=== PATIENT | male | born 1995 | race Caucasian/White ===

== ENCOUNTER 2024-02-06 17:08 | Emergency (ER) | payer SELFPAY ==
[2024-02-06 17:10] VITALS: BP 125/71; PULSE 69; RESP 18; TEMP 36.1; O2SAT 100; BMI 29.0
--- NOTE | 2024-02-06 17:22 | EKG12_ITS ---
Test Reason : CP Blood Pressure : / mmHG Vent. Rate : 074 BPM Atrial Rate : 074 BPM P-R Int : 192 ms QRS Dur : 094 ms QT Int : 396 ms P-R-T Axes : 054 063 043 degrees QTc Int : 439 ms Normal sinus rhythm Normal ECG Confirmed by CATRINA BARFIELD, KATHERYN ([id number]), video tape editor PHILLIP FRANKLIN ([id number]) on 02/08/2024 2:00:07 PM Referred By: ZUNILDA Confirmed By:KATHERYN FRITZ MD
--- NOTE | 2024-02-06 17:23 | EDS_ITS ---
HPI History of Present Illness Chief Complaint: Chest Pain Narrative Narrative: 28-year-old male who denies significant past medical history presents with intermittent chest pain that has had for the last 2 months. He states that sometimes it is dull then sharp, but very fleeting. It would sporadically, but has become more frequent. He denies any fevers or chills, no nausea or vomiting, no shortness of breath or diaphoresis associated with it. Usually comes on when he is walking. He denies any leg swelling, no DVT or PE risk factors. He is a smoker, and states that his mom had a heart attack at a young age. He presents because the intermittent chest pain has become more frequent. It is not constant, but the last time he had it he was walking through [place] 30 minutes ago. PFSH PFSH Allergy/AdvReac Type Severity Reaction Status Date / Time No Known Allergies Allergy Verified 02/06/24 17:09 Social History Smoking Status: Current every day smoker tobacco type: cigarettes ROS ROS ED ROS Narrative Constitutional: No fever, no chills. No diaphoresis. HEENT: No sore throat. No neck pain. No loss of vision. No rhinorrhea. Cardiovascular: Positive intermittent, fleeting chest pain. No palpitations. No pedal edema. Respiratory: No cough, no shortness of breath. Abdominal: No abdominal pain. No nausea. No vomiting. Genitourinary: No dysuria. No hematuria. Musculoskeletal: No myalgias. No arthralgias. Neurologic: No headaches. No dizziness. No lightheadedness. Skin: No rash. No change in color. Psychiatric: No depression. No anxiety. EXAM Physical Exam Narrative Exam Narrative: Afebrile. Vital signs noted. Nontoxic-appearing. Regular rate and rhythm. Lungs are clear to auscultation bilaterally. Abdomen soft nontender with normal active bowel sounds. Neurological examination nonfocal and nonlateralizing. No pedal edema. Const Vital Signs: 02/06/24 17:10 02/06/24 17:45 02/06/24 17:45 Temperature 97 F L Temperature Source Temporal Pulse Rate 69 Respiratory Rate 18 Respiratory Effort Normal Non-Labored Blood Pressure 125/71 H Blood Pressure Mean 89 Pulse Ox 100 Oxygen Delivery Method Room Air Room Air 02/06/24 18:12 10/06/24 19:00 02/06/24 20:00 Temperature Temperature Source Pulse Rate 69 61 60 Respiratory Rate 21 H 16 Respiratory Effort Blood Pressure 140/70 H 142/78 H 142/78 H Blood Pressure Mean 93 99 99 Pulse Ox 92 94 Oxygen Delivery Method Room Air Room Air Heart Score History: Slightly/Non-Suspicious ECG: Normal Age: </= 45 years Risk Factors: 1 or 2 Risk Factors Troponin: </= Normal Limit Score: 1 MDM MDM MDM Narrative Medical decision making narrative: Differential diagnosis includes but not limited to acute coronary syndrome versus pulmonary embolism versus pneumonia versus pneumothorax. History and phy sical does not support the latter 2 diagnoses. I have low suspicion for pulmonary embolism because he is PERC negative, not tachycardic, and has a pulse ox of 100% on room air without evidence of hypoxia. I will obtain a D-dimer though to help rule this out. Comprehensive workup was pursued. EKG was obtained and interpreted by myself independently. EKG demonstrates normal sinus rhythm at 74 bpm without ectopy or acute ST changes. No STEMI. I reviewed his laboratory work and he has normal white count of 10.9, hemoglobin normal at 16.4, hematocrit 48.4, platelet count normal at 250. D-dimer is negative at 0.41, sodium normal at 141, potassium normal at 3.8, anion gap low at 4. Initial high-sensitivity troponin is 4 with repeat at 2 hours also being 4 for a negative delta troponin. I feel he has been ruled out for ACS with biomarkers. Chest x-ray 1 view interpreted by myself independently shows no evidence of pneumonia or pneumothorax. I reviewed the radiology report which confirms my independent interpretation. At this point in time, I feel he can be discharged to follow-up with a primary care provider. Return instructions to the emergency department were reviewed. Disposition is discharged home in stable condition. History & Record Review Discussion w/independent historian: Patient and Family Lab Data Attestation: I reviewed the patient's lab results. Labs: Laboratory Results - last 24 hr 02/06/24 02/06/24 17:35 19:38 WBC 10.9 RBC 5.33 Hgb 16.4 Hct 48.4 MCV 90.8 MCH 30.8 MCHC 33.9 RDW Std Deviation 43.1 RDW Coeff of Jaya 13.1 Plt Count 250 MPV 9.8 Immature Gran % (Auto) 0.200 Neut % (Auto) 58.3 Lymph % (Auto) 33.1 [place] % (Auto) 5.8 Eos % (Auto) 2.0 Baso % (Auto) 0.6 Absolute Neuts (auto) 6.3 Absolute Lymphs (auto) 3.60 Nucleated RBC % 0 D-Dimer Quant (PE/DVT) 0.41 Sodium 141 Potassium 3.8 Chloride 106 Carbon Dioxide 31.0 Anion Gap 4 L BUN 17 Creatinine 0.92 Estim Creat Clear Calc 120.95 Est GFR (MDRD) Af Amer 127 Est GFR (MDRD) Non-Af 105 BUN/Creatinine Ratio 18.4 Glucose 98 Calcium 8.8 Troponin I High Sens 4 4 Radiography Diagnostic Testing: Clinical Impression(s) from Imaging Studies Chest X-Ray 02/06/24 17:38 IMPRESSION: Normal x-ray examination of the chest. Electronically Signed: Lyle Aguilar MD at 17:52 EDT Reading Location ID and State: [address] [address] , Service support , Discharge Plan Triage Chief Complaint: Chest Pain ED Provider: Carlos Middleton Dx/Rx/DC Orders Clinical Impression: Chest pain, Smoker Instructions: ED Chest Pain, Uncertain Cause Primary Care Provider: Care Physician,No Primary Referrals: Xavi Robison MD [Med Staff - Active Staff] - 1 Week if not improving Care Physician,No Primary [Primary Care Provider] - Activity Restrictions/Additional Instructions: Return with increased pain, new or worsening symptoms. Print Language: Urdu Disposition Disposition: Home, Self Care
--- NOTE | 2024-02-06 17:25 | NURSING ---
NO OLD EKGS
--- NOTE | 2024-02-06 17:38 | RAD_ITS ---
STUDY: X-RAY CHEST REASON FOR EXAM: Male, 28 years old. Atypical chest pain TECHNIQUE: Single AP portable view of the chest. COMPARISON: None. FINDINGS: EKG leads overlie the chest The lungs are clear and expanded. There is no demonstrated pleural abnormality. Normal size heart. Normal mediastinum and talat. Normal visualized pulmonary arteries. Normal visualized aortic arch and descending thoracic aorta. Normal visualized thoracic spine. Normal visualized ribs, clavicles, and shoulders. There is no demonstrated abnormality of the visualized soft tissue structures of the upper abdomen. RAD/Chest 1 View (Portable) IMPRESSION: Normal x-ray examination of the chest. Electronically Signed: Lyle Aguilar MD at 17:52 EDT ,
[2024-02-06 17:44] LABS: Absolute Neutrophil Count 6.3 X10^3/uL (2.0-7.7); Basophil# 0.06 X10^3/uL; Basophil% 0.6 % (0-1); Eosinophil# 0.22 X10^3/uL; Hematocrit 48.4 % (40-54); Hemoglobin 16.4 g/dL (13.0-16.5); Lymphocyte % 33.1 % (19-41); Mean Corp Hgb Conc 33.9 g/dL (32-36); Mean Corpuscular Hgb 30.8 pg (27.0-32.0); Mean Corpuscular Volume 90.8 fL (80-94); Mean Platelet Vol. 9.8 fl (6.2-12.0); Monocyte# 0.63 X10^3/uL; Monocyte% 5.8 % (0-10); NRBC Flagged by Analyzer 0 % (0-5); Neutrophil # 6.33 X10^3/uL (2.7-7.7); Neutrophil % 58.3 % (47-70); Platelet Count 250 K/mm3 (150-450); RBC Distribution Width CV 13.1 % (11.6-14.6); RBC Distribution Width SD 43.1 fl (35.1-43.9); Red Blood Count 5.33 M/mm3 (4.6-6.2); White Blood Count 10.9 K/mm3 (4.4-11.0)
[2024-02-06 17:56] LABS: D-Dimer Quantitative (DVT/PE) 0.41 FEU/ug/m (0.27-0.49)
[2024-02-06 18:03] LABS: Anion Gap 4 (5-15); BUN 17 mg/dL (7-18); BUN/Creat Ratio 18.4 RATIO (10-20); Calcium,Total 8.8 mg/dL (8.5-10.1); Chloride 106 mmol/L (98-107); Creatinine, Serum 0.92 mg/dL (0.70-1.30); EST Glomerular Filtration Rate 105 mL/min (>60); Est Glom Filt Rate - Afr Amer 127 mL/min (>60); Estimated Creatinine Clearance 120.95 ml/min; Glucose 98 mg/dL (74-106); Potassium 3.8 mmol/L (3.5-5.1); Sodium Level 141 mmol/L (136-145); Troponin-I HS (w/2H Reflex) 4 pg/mL (3.0-78.0)
[2024-02-06 18:12] VITALS: BP 140/70; PULSE 69
[2024-02-06 19:00] VITALS: BP 142/78; PULSE 61; RESP 21; O2SAT 92
[2024-02-06 19:41] LABS: Reflex Troponin-HS? (from REC) Y
[2024-02-06 20:00] VITALS: BP 142/78; PULSE 60; RESP 16; O2SAT 94
[2024-02-06 20:05] LABS: Troponin-I HS 4 pg/mL (3.0-78.0)
[2024-02-06 20:19] VITALS: BP 141/72; PULSE 58; RESP 18; TEMP 36.6; O2SAT 94
== END 2024-02-06 20:22 | disposition home or self-care (01) ==
PROVIDERS: Emergency Provider Emergency Medicine; Visit Provider Emergency Medicine
DX: R07.9 Chest pain, unspecified (principal); F17.210 Nicotine dependence, cigarettes, uncomplicated
CPT/HCPCS: 71045; 80048; 84484; 85025; 85379; 93005; 99283; A4216

== ENCOUNTER 2024-05-02 12:52 | Emergency (ER) | payer SELFPAY ==
[2024-05-02 12:54] VITALS: BP 133/77; PULSE 98; RESP 14; TEMP 37.1; O2SAT 98; BMI 30.1
== END 2024-05-02 14:42 | disposition left against medical advice (07) ==
LOC: ED 14:43
DX: Z53.21 Procedure and treatment not carried out due to patient leaving prior to being seen by health care provider (principal)

== ENCOUNTER 2024-05-24 16:07 | Emergency (ER) | payer OTHER, SELFPAY ==
[2024-05-24 16:11] VITALS: BP 138/71; PULSE 94; RESP 16; TEMP 36; O2SAT 100; BMI 29.9
[2024-05-24 18:08] VITALS: BP 132/77; PULSE 84; RESP 18; O2SAT 99
--- NOTE | 2024-05-24 18:26 | ED.VIS.BACK ---
HPI History of Present Illness Chief Complaint: Back Informant: patient Onset/Context/Timing Onset: Weeks Context: Gradual Onset Injury: lifting Quality: Sharp Location: Lumbar Current Severity: Moderate Maximum Severity: Moderate Worsened by: improves with Movement, Bending and Lifting Relieved by: Remaining Still Associated Symptoms Associated Symptoms: Tingling; Negative for Numbness, Radiation to Right Leg, Radiation to Left Leg, Fever, Abdominal Pain, Dysuria, Unable to Ambulate, Unable to Transfer, Urinary Retention, Urinary Incontinence, Constipation or Fecal Incontinence Narrative Narrative: 28-year-old male a week and a half ago was at work lifted a semichair and since shortly after that has had lower back pain. Has filed a Worker's Comp. claim. Saw a chiropractor recently. Currently is on cyclobenzaprine and prednisone. Denies any bowel or bladder incontinence. Denies any leg weakness. He says he is tingling both in the upper and lower extremities but the pains in his lower back. No prior back surgery. No fever. No fall or head trauma. Prior similar symptoms: No Recent Illness/Hospitalization: No PFSH PFSH Medical History no medical history no medical history Allergy/AdvReac Type Severity Reaction Status Date / Time No Known Allergies Allergy Verified 05/02/24 12:53 Social History Smoking Status: Current every day smoker tobacco type: cigarettes ROS ROS ED ROS Narrative Denies recent illness. Low back pain after lifting something at work. Constitutional Constitutional ED: Denies chills or fever(s) Eyes Eyes: Denies blurry vision ENT ENT ED: Denies ear pain Cardiovascular Cardiovascular: Denies chest pain Respiratory/Chest Respiratory/Chest: Denies dyspnea Gastrointestinal Gastrointestinal: Denies abdominal pain Genitourinary Genitourinary ED: Denies dysuria or hematuria Musculoskeletal Musculoskeletal: Reports back pain; Denies arthralgias Integumentary Denies abscess Neurologic Neurologic: Denies headache(s) Psychiatric Psychiatric: Denies anxiety Endocrine Endocrinology: Denies cold intolerance Hematologic/Lymphatic Hematologic/Lymphatic: Denies easy bleeding Allergic/Immunologic Allergic/Immunologic ED: Denies mouth swelling, tongue swelling or urticaria EXAM Physical Exam Narrative Exam Narrative: Well-appearing 28-year-old male. Vital signs stable afebrile. H EENT exam pupils round react light. Moist mucous membranes. No trauma. Neck nontender normal range of motion. No lymphadenopathy. Lungs clear to auscultation bilaterally. Heart regular rhythm no murmur. Chest wall ribs nontender. Abdomen soft nontender. Moving all 4 extremities. He is able to lift either leg he has more pain in his lower back with lifting his legs. 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 Equal symmetrical sensation both upper extremities. He has 5 out of 5 dorsi and plantarflexion. He has normal sensation of both feet on both the medial and lateral sides. Normal medial thigh sensation. No cauda equina. No saddle anesthesia. Negative straight leg raise. Back exam he is tenderness over his spine and paralumbar soft tissue consistent with a lumbar strain. Neurologically he is awake and alert. No focal motor or sensory deficits. He complains of tingling both upper and lower extremities but has normal sensation and strength. Const Vital Signs: 05/24/24 16:11 05/24/24 18:08 Temperature 96.8 F L Temperature Source Temporal Pulse Rate 94 84 Respiratory Rate 16 18 Blood Pressure 138/71 H 132/77 H Blood Pressure Mean 93 95 Pulse Ox 100 99 Oxygen Delivery Method Room Air Positive well nourished and well developed; Negative for obese, cachectic, contractures or unkempt General Appearance ED: well developed and NAD; Negative for unkempt, cachectic, contractures or pallor Nutritional Appearance: Negative for cachectic or obese HEENT Negative for trauma or tenderness Eyes PERRL and EOMs intact bilaterally Neck no lymphadenopathy, supple and no JVD General: Negative for tenderness Thyroid: Negative for other Resp normal respiratory effort and clear to auscultation bilaterally Effort and Inspection: Negative for pain with movement Auscultation: Negative for rales, rhonchi, wheezes or diminished lung sounds Cardio regular rate, regular rhythm, S1 normal heart sound, S2 normal heart sound and no murmurs Rate: Negative for bradycardia or tachycardic Rhythm: Negative for abnormal rhythm GI normal to inspection, nondistended, normoactive bowel sounds, soft to palpation, non-tender, non-distended and no masses Palpation: Negative for tender, guarding or rebound tenderness present Back/Spine normal to inspection and no thoracic nor lumbar tenderness Back/Spine Narrative: Lumbar spine tenderness. Paralumbar tenderness. No ecchymosis or bruising. No redness or warmth. General Back: Negative for CVA tenderness Cervical Spine: Negative for cervical spine tenderness and Negative for paracervical muscle tenderness Thoracic Spine / Upper Back: Negative for paraspinal muscle tenderness Lumbar Spine / Lower Back: straight leg raise negative bilaterally Extremity normal to inspection and no clubbing, cyanosis or edema Extremity Narrative: Bilateral 5-5 vehicle service attendant strength in upper extremities. Bilateral 5 out of 5 dorsi plantarflexion lower extremities. Normal sensation. No cauda equina. No saddle anesthesia. Normal medial thigh sensation and sensation in both feet. Able to wiggle his toes. He can lift either leg off the bed it just hurts the more in his lower back. There is no radiation down his legs no radiculopathy. General Extremety ED: Negative for edema or tenderness General Extremity: Negative for edema Neuro oriented x3 and no sensory deficits noted Sensorium / Orientation: alert; Negative for confused, lethargic or stuporous Motor Exam: strength 5/5 throughout Psych mental status grossly normal Appearance: Negative for unkempt Attitude: No agitated Mood & Affect: Negative for depressed or tearful Skin no rashes or lesions noted and no wounds General Skin Exam: Negative for jaundice or pallor Lesions: No lesion noted Rashes: No rashes noted Trauma: Negative for abrasion or puncture Wounds: wounds noted MDM MDM MDM Narrative Medical decision making narrative: 28-year-old male history and exam are consistent with a lumbar strain. No signs of cauda equina. No signs of acute disc. No radiculopathy. Plain x-rays of the back are being obtained. He will be given a IM injection of morphine and p.o. Zofran and reassess. History & Record Review Discussion w/independent historian: Patient Discharge Plan Triage Chief Complaint: Back ED Provider: Joshua Aguirre Dx/Rx/DC Orders Primary Care Provider: Care Physician,No Primary Referrals: Care Physician,No Primary [Primary Care Provider] - Print Language: Citizen Of [place]
--- NOTE | 2024-05-24 18:50 | RAD_ITS ---
STUDY: X-RAY - LUMBAR SPINE REASON FOR EXAM: Male, 28 years old. Lumbar pain with lifting injury TECHNIQUE: 3 view(s) of the lumbar spine were obtained. COMPARISON: None FINDINGS: Normal lumbar lordosis. There is no substantial scoliosis. There is a normal alignment of the vertebrae. Normal vertebral bodies . There is disc space narrowing and spurring at L5-S1. There is no demonstrated fracture. The soft tissue structures are unremarkable. RAD/Lumbar Spine 2 or 3 Views IMPRESSION: Degenerative change at L5-S1. Electronically Signed: Salazar Johnson MD at 19:33 EST ,
[2024-05-24 20:00] VITALS: BP 133/78; PULSE 74; RESP 16; O2SAT 96
[2024-05-24 20:46] VITALS: BP 131/82; PULSE 67; RESP 18; TEMP 36.7; O2SAT 98
== END 2024-05-24 20:55 | disposition home or self-care (01) ==
PROVIDERS: Emergency Provider Emergency Medicine; Visit Provider Emergency Medicine
DX: M54.50 Low back pain, unspecified (principal); F17.210 Nicotine dependence, cigarettes, uncomplicated
CPT/HCPCS: 72100; 99282